=== PATIENT | female | born 1975 | race Caucasian/White ===

== ENCOUNTER 2018-04-11 21:27 | Emergency (ER) | payer SELFPAY ==
[~2018-04-11] VITALS: Ht 160 cm; Wt 81.6 kg
[2018-04-11 21:45] VITALS: BP 120/74
[2018-04-11] MEDS ORDERED: NKM (21:47)
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
[2018-04-11] MEDS ORDERED: Norco 5mg/325mg tab ORAL ONE (22:00)
[2018-04-11 22:30] VITALS: BP 118/75
[2018-04-11] MEDS ORDERED: IBUPROFEN600 MG ORAL (22:30)
[2018-04-11] MEDS ORDERED: CYCLOBENZAPRINE10 MG ORAL (22:30)
[2018-04-11] MEDS ORDERED: HYDROCODON-ACE1 EA15 ORAL (22:30)
[2018-04-11 22:35] VITALS: BP 118/75
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
== END 2018-04-11 23:25 | disposition home or self-care (01) ==
LOC: EMR 22:45
DX: S16.1XXA Strain of muscle, fascia and tendon at neck level, initial encounter (principal); S39.012A Strain of muscle, fascia and tendon of lower back, initial encounter; V43.52XA Car driver injured in collision with other type car in traffic accident, initial encounter; Y92.488 Other paved roadways as the place of occurrence of the external cause; F17.200 Nicotine dependence, unspecified, uncomplicated
CPT/HCPCS: 72052; 99283